=== PATIENT | male | born 1930 | race Caucasian/White ===

== ENCOUNTER 2017-04-13 15:28 | Inpatient (IN) ==
[2017-04-13 17:28] LABS: Basophils # 0.1 10*3/uL (0.0-0.2); Basophils % 0.9 % (0.0-0.8); Eosinophils # 0.6 10*3/uL (0.0-0.87); Eosinophils % 8.2 % (0.00-10.9); Hematocrit 26.5 VOL% (42.0-52.0); Hemoglobin 7.9 GM/DL (14.0-18.0); Immature Granulocytes % 0.4 %; Immature Granulocytes Absolute 0.03 #; Lymphocytes # 1.7 10*3/uL (1.4-4.0); Mean Corpuscular HGB Conc 29.8 GM/DL (32-36); Mean Corpuscular Hemoglobin 23 PG (27-34); Mean Corpuscular Volume 78.6 FL (87-102); Mean Platelet Volume 9.5 FL (9.6-12.0); Monocytes # 0.7 10*3/uL (0.11-0.8); Monocytes % 10.6 % (1.7-12.7); NRBC # 0.02 10*3/uL; Neutrophils # 3.9 10*3/uL (1.4-7.4); Neutrophils % 55.9 % (38.7-73.9); Platelet Count 363 T/CUMM (130-400); Red Blood Count 3.37 MC/CUMM (3.8-5.5); Red Cell Distribution Width 16.9 % (9.3-17.3)
[2017-04-13 17:36] LABS: INR 1.1; PT Patient Result 11.4 SECS
[2017-04-13 17:51] LABS: Albumin 3.6 G/DL (3.4-5.0); Bilirubin,Total 1.3 MG/DL (0.2-1.0); Calcium 8.8 MG/DL (8.5-10.1); Magnesium 2.3 MG/DL (1.8-2.4); Potassium 4.7 MMOL/L (3.5-5.1); Total Protein 6.8 G/DL (6.4-8.3)
[2017-04-13] MEDS ORDERED: SODIUM CHLORIDE 0.9% 1,000 ML IV PRN ×2 (21:02)
[2017-04-13] MEDS ORDERED: SODIUM CHLORIDE 0.9% 1,000 ML IV SCH (21:02)
[2017-04-13] MEDS ORDERED: ONDANSETRON 4 MG/2 ML VIAL IV PRN (21:02)
[2017-04-13] MEDS ORDERED: ACETAMINOPHEN 325 MG TABLET PO PRN (21:02)
[2017-04-13 21:14] LABS: Basophils # 0.1 10*3/uL (0.0-0.2); Basophils % 0.8 % (0.0-0.8); Eosinophils # 0.6 10*3/uL (0.0-0.87); Eosinophils % 8.7 % (0.00-10.9); Hematocrit 26.1 VOL% (42.0-52.0); Hemoglobin 7.8 GM/DL (14.0-18.0); Immature Granulocytes % 0.5 %; Immature Granulocytes Absolute 0.03 #; Lymphocytes # 1.6 10*3/uL (1.4-4.0); Lymphocytes % 24.3 % (21.2-54.2); Mean Corpuscular HGB Conc 29.9 GM/DL (32-36); Mean Corpuscular Hemoglobin 23 PG (27-34); Mean Corpuscular Volume 78.1 FL (87-102); Mean Platelet Volume 10.5 FL (9.6-12.0); Monocytes # 0.7 10*3/uL (0.11-0.8); Monocytes % 9.8 % (1.7-12.7); NRBC # 0.02 10*3/uL; Neutrophils # 3.7 10*3/uL (1.4-7.4); Neutrophils % 55.9 % (38.7-73.9); Platelet Count 375 T/CUMM (130-400); Red Blood Count 3.34 MC/CUMM (3.8-5.5); Red Cell Distribution Width 16.9 % (9.3-17.3); White Blood Count 6.6 T/CUMM (4-12)
[2017-04-13 21:19] LABS: Partial Thromboplastin Time 30.9 SECS (0-40)
[2017-04-13 21:20] LABS: Albumin 3.5 G/DL (3.4-5.0); Calcium 8.7 MG/DL (8.5-10.1); Magnesium 2.2 MG/DL (1.8-2.4); Osmolality,Calculated 276.8 MOS/KG (273-304); Potassium 4.4 MMOL/L (3.5-5.1); Total Protein 7.1 G/DL (6.4-8.3)
[2017-04-14] MEDS: DOCUSATE SODIUM 100 MG CAPSULE PO SCH ×3 (00:06→22:58)
[2017-04-14 06:31] LABS: Basophils % 0.7 % (0.0-0.8); Eosinophils # 0.3 10*3/uL (0.0-0.87); Eosinophils % 5.2 % (0.00-10.9); Hematocrit 23.5 VOL% (42.0-52.0); Hemoglobin 7.1 GM/DL (14.0-18.0); Immature Granulocytes % 0.7 %; Immature Granulocytes Absolute 0.04 #; Lymphocytes # 1.4 10*3/uL (1.4-4.0); Lymphocytes % 23.4 % (21.2-54.2); Mean Corpuscular HGB Conc 30.2 GM/DL (32-36); Mean Corpuscular Hemoglobin 23 PG (27-34); Mean Corpuscular Volume 77.3 FL (87-102); Monocytes # 0.7 10*3/uL (0.11-0.8); Monocytes % 11.4 % (1.7-12.7); Neutrophils # 3.5 10*3/uL (1.4-7.4); Neutrophils % 58.6 % (38.7-73.9); Platelet Count 331 T/CUMM (130-400); Red Blood Count 3.04 MC/CUMM (3.8-5.5); Red Cell Distribution Width 16.9 % (9.3-17.3)
[2017-04-14 06:52] LABS: Calcium 8.2 MG/DL (8.5-10.1); Magnesium 2.3 MG/DL (1.8-2.4); Osmolality,Calculated 280.5 MOS/KG (273-304)
[2017-04-14] MEDS: rOPINIRole 0.25 MG TABLET PO SCH ×3 (10:09→22:57)
[2017-04-14] MEDS: CARBIDOPA/LEVODOPA 25-100 MG TABLET PO SCH ×3 (10:09→22:57)
[2017-04-14] MEDS: PANTOPRAZOLE 40 MG TABLET PO SCH (10:09)
[2017-04-14] MEDS: DESITIN 4OZ/NYSTATIN 15 GRAM MIXTURE PASTE TOP SCH ×2 (16:03→23:05)
[2017-04-14 20:13] LABS: Hematocrit 29.9 VOL% (42.0-52.0)
[2017-04-14] MEDS: APIXABAN 5 MG TABLET PO SCH (22:58)
[2017-04-15 07:06] LABS: Basophils % 0.6 % (0.0-0.8); Eosinophils # 0.6 10*3/uL (0.0-0.87); Eosinophils % 8.2 % (0.00-10.9); Hematocrit 30.7 VOL% (42.0-52.0); Hemoglobin 9.4 GM/DL (14.0-18.0); Immature Granulocytes % 0.4 %; Immature Granulocytes Absolute 0.03 #; Lymphocytes # 1.6 10*3/uL (1.4-4.0); Lymphocytes % 23.2 % (21.2-54.2); Mean Corpuscular HGB Conc 30.6 GM/DL (32-36); Mean Corpuscular Hemoglobin 24 PG (27-34); Mean Corpuscular Volume 78.7 FL (87-102); Mean Platelet Volume 9.8 FL (9.6-12.0); Monocytes # 0.7 10*3/uL (0.11-0.8); Monocytes % 10.2 % (1.7-12.7); NRBC # 0.03 10*3/uL; Neutrophils % 57.4 % (38.7-73.9); Platelet Count 371 T/CUMM (130-400); Red Cell Distribution Width 17.1 % (9.3-17.3)
[2017-04-15 07:36] LABS: Calcium 8.5 MG/DL (8.5-10.1); Magnesium 2.4 MG/DL (1.8-2.4); Osmolality,Calculated 275.8 MOS/KG (273-304); Potassium 4.4 MMOL/L (3.5-5.1)
[2017-04-15] MEDS: PANTOPRAZOLE 40 MG TABLET PO SCH (09:39)
[2017-04-15] MEDS: CARBIDOPA/LEVODOPA 25-100 MG TABLET PO SCH (09:39)
[2017-04-15] MEDS: DOCUSATE SODIUM 100 MG CAPSULE PO SCH (09:39)
[2017-04-15] MEDS: APIXABAN 5 MG TABLET PO SCH (09:39)
[2017-04-15] MEDS: rOPINIRole 0.25 MG TABLET PO SCH (09:39)
[2017-04-15] MEDS: DESITIN 4OZ/NYSTATIN 15 GRAM MIXTURE PASTE TOP SCH (09:40)
[2017-04-15 11:56] VITALS: BP 150/77
== END 2017-04-15 14:55 | disposition home or self-care (01) | DRG 300 ==
LOC: N.ED 15:28 → N.EDINP 19:12 → N.2E 20:59
PROVIDERS: ADMIT Family Medicine; ATTEND Family Medicine